=== PATIENT | female | born 1950 | race Caucasian/White ===

== ENCOUNTER 2021-10-06 11:41 | Outpatient (CLI) | payer MEDICARE, BC | END 2021-10-06 11:42 | disposition home or self-care (01) | LOC: CSHMAMMO 11:41 | PROVIDERS: ATTEND Obstetrics & Gynecology Gynecologic Oncology | DX: Z12.31 Encounter for screening mammogram for malignant neoplasm of breast (principal); Z85.42 Personal history of malignant neoplasm of other parts of uterus; Z85.89 Personal history of malignant neoplasm of other organs and systems | CPT/HCPCS: 77063; 77067 ==